=== PATIENT | male | born 1960 | race Caucasian/White ===

== ENCOUNTER 2018-06-17 08:26 | Day surgery (SDC) | payer BC ==
[2018-06-12 11:28] LABS: HEMATOCRIT 44.9 % (37.9-51.0); HEMOGLOBIN 15.5 g/dL (13.5-17.0); MEAN CORPUSCULAR HEMOGLOBIN 30.7 pg (27.0-33.4); MEAN CORPUSCULAR HGB CONC 34.6 g/dL (32.0-36.0); MEAN CORPUSCULAR VOLUME 89 fl (80-97); PLATELET COUNT 221 10^3/uL (150-450); RED BLOOD COUNT 5.06 10^6/uL (4.35-5.55); RED CELL DISTRIBUTION WIDTH 13.3 % (11.5-14.0); WHITE BLOOD COUNT 6.2 10^3/uL (4.0-10.5)
--- NOTE | 2018-06-15 17:40 | EKG REPORT ---
SEVERITY:- ABNORMAL ECG - SINUS RHYTHM INCOMPLETE RIGHT BUNDLE BRANCH BLOCK NONSPECIFIC T ABNORMALITIES, LATERAL LEADS, LVH. BORDERLINE PROLONGED QT INTERVAL : Confirmed by: Sergio Allen MD 15-Jun-2018 17:39:35
[~2018-06-17 08:26] MED LIST: ACETAMINOPHEN 325 MG TABLET PO PRN; CIPROFLOXACIN 400 MG/D5W RTU 400 MG/200 ML RTUPB IV ONE; CIPROFLOXACIN 400 MG/D5W RTU 400 MG/200 ML RTUPB IV PRN; LACTATED RINGERS 1000 ML IV PRN
[2018-06-17] MEDS ORDERED: HYDROMORPHONE HCL INJ/PF 2 MG/ML AMPULE ONE (10:15)
[2018-06-17] MEDS ORDERED: FENTANYL CITRATE INJ/PF 100 MCG/2 ML AMPUL ONE (10:15)
[2018-06-17] MEDS ORDERED: MIDAZOLAM 2 MG/2 ML INJ ONE (10:15)
[2018-06-17] MEDS ORDERED: PROPOFOL INJ 200 MG/20 ML VIAL IV ONE ×2 (10:16→11:12)
[2018-06-17] MEDS ORDERED: ACETAMINOPHEN 1,000 MG/100 ML RTUPB IV ONE (10:16)
[2018-06-17] MEDS ORDERED: BUPIVACAINE HCL 0.5 % INJ/PF 30 ML SDV ONE (10:42)
[2018-06-17] MEDS ORDERED: BUPIVACAINE INJ/PF LIPOSOME/PF 266 MG/20 ML SDV ONE (10:42)
[2018-06-17] MEDS ORDERED: BUPIVACAINE HCL/DEX-WATER/PF 15 MG/2 ML AMPULE ONE (11:11)
[2018-06-17] MEDS ORDERED: EPHEDRINE SULFATE INJ 50 MG/1 ML AMPULE ONE (11:12)
[2018-06-17] MEDS ORDERED: ONDANSETRON HCL INJ/PF 4 MG/2 ML SDV ONE (11:19)
[2018-06-17] MEDS ORDERED: DIPHENHYDRAMINE HCL 50 MG/ML VIAL IV PRN (11:51)
[2018-06-17] MEDS ORDERED: PROMETHAZINE HCL INJ 25 MG/1 ML VIAL IV PRN ×2 (11:51)
[2018-06-17] MEDS ORDERED: FENTANYL CITRATE INJ/PF 100 MCG/2 ML AMPUL IV PRN ×3 (11:51)
[2018-06-17] MEDS ORDERED: MORPHINE SULFATE 10 MG/ML INJ IV PRN (11:51)
[2018-06-17] MEDS ORDERED: MEPERIDINE HCL/PF INJ 25 MG/1 ML DISP.SYRIN IV PRN (11:51)
--- NOTE | 2018-06-17 13:06 | EKG REPORT ---
SEVERITY:- ABNORMAL ECG - SINUS RHYTHM LEFT ATRIAL ABNORMALITY NONSPECIFIC T ABNORMALITIES, DIFFUSE LEADS : Confirmed by: Sergio Allen MD 17-Jun-2018 13:04:42
--- NOTE | 2018-06-17 13:08 | Operative Report ---
Operative Report DATE OF SURGERY: 06/17/18 PREOPERATIVE DIAGNOSIS: Left inguinal hernia POSTOPERATIVE DIAGNOSIS: Same, indirect OPERATION: 1. Left inguinal expiration. 2. Left inguinal herniorrhaphy with large UHS mesh SURGEON: LUIS A LUTZ BANK EXAMINER: SILVESTRE ANDREA ANESTHESIA: Spinal TISSUE REMOVED OR ALTERED: Hernia sac COMPLICATIONS: None ESTIMATED BLOOD LOSS: Scant INTRAOPERATIVE FINDINGS: See below PROCEDURE: Patient was taken to the preop holding area with a left inguinal area was marked to the main operating room where appropriate level of spinal anesthesia was asked. The patient was placed in supine position arms extended, bed opened for maximum exposure to the inguinal area areas. The inguinal area which been previously clipped of hair was prepped and draped in sterile fashion as well as the testicles and scrotum. Surgical plan surgical timeout were conducted. The skin was Britta times with quarter percent Marcaine. A standard left inguinal herniorrhaphy incision was made with a knife, #10 blade. Subcutaneous tissue and Radha's fascia divided as encountered. Deeper tissues were anesthetized with quarter percent Marcaine, and the external oblique aponeurosis was opened, exposing the inguinal canal. Contents of the inguinal canal were carefully dissected free, sparing the ilioinguinal nerve. The patient had a moderate sized readily identifiable hernia sac which was dissected free of the cord structures. This was an indirect hernia taken to its point of origination, lateral to the inferior epigastric vessels. It was dissected cleanly and freely from all surrounding structures. Was opened, and confirmed communicate with the peritoneal cavity. I inspected the floor of the inguinal canal medially and it appeared to be but grossly intact. There were no contents within the sac proper other than peritoneal fluid. Sac was then rotated on its base, tied off with a 2-0 Vicryl suture, and amputated and sent to pathology as a hernia sac I felt that a prosthetic dual layer mesh was appropriate reconstruct the floor the inguinal canal. I believe that a non- large, UHS mesh would be an appropriate prosthetic so this was selected and brought onto the field. Now opened up the retroperitoneal space by bluntly dissecting the Tori cavity off of the anterior and lower pelvic sears on the patient's left side. We now deployed the mesh, splaying out the inner component into the retroperitoneal space. We now trimmed the external component to the appropriate configuration to reconstruct the floor the inguinal canal internally. Using approximately 8- 0 PDS sutures, the external component to the inguinal ligament inferiorly, the lacunar ligament medially, and the conjoined tendon superiorly. Ilioinguinal nerve was visualized throughout the dissection, and preserved. We did cut an upside down U in the mass at the 6 o'clock position to re-create the internal inguinal ring. Once the mesh was secured, the new ring was of appropriate diameter, and not too tight. We are satisfied with the reconstruction. There was no bleeding. We closed the external oblique aponeurosis along the direction of its fibers and then closed Radha's fascia with 2-0 Vicryl, skin closed with 3-0 Vicryl Dermabond glue, and injected 20 cc of full-strength Exparel into the subcutaneous tissues. Patient tolerated the procedure well, in the recovery room in stable condition. The physician clerical assistant, Ms. Lagos, provided assistance during this case by: Assisting, retracting tissue, instillation of local anesthesia and closure of skin incisions.
[2018-06-17] MEDS ORDERED: OXYCODONE-ACETAMINOPHEN 5-325 MG TABLET PO PRN (13:15)
--- NOTE | 2018-06-17 13:15 | Discharge Summary ---
Discharge Summary (SDC) - Discharge Final Diagnosis: Left inguinal hernia Date of Surgery: 06/17/18 Discharge Date: 06/17/18 Condition: Stable Treatment or Instructions: [facility] [address], [place] [address] Discharge Instructions: Open Abdominal Procedures (Hernia, Bowel Surgery) 1.General Information: a. DO NOT DRIVE a car or operative machinery for 1-2 weeks or as long as taking Narcotic pain medication. b. DO NOT consume alcohol, tranquilizers, sleeping medication, or any non- prescribed medication for 24 hours unless approved by your doctor or as long as taking pain medication. c. DO NOT make important decisions or sign any important papers for the first 24 hours after surgery. d. When discharged home the same day as surgery have a responsible person with you the first night. 2.Activity Restriction: 6 weeks, a. Avoid heavy lifting (> 10-15 lbs), straining abdominal muscles and sports, mowing lawn, vacuum guide rail cleaner and bending over a lot. b. Walking is important to avoid blood clots in the legs and deep breathing can prevent pneumonia. c. If it fine to go for walks, up and down steps, and ride in a car. 3.Treatment: a. You may shower in 24 hours. Do not scrub area. Let warm water/soap wash over area, pat dry. Cover if needed. Do not peel off skin glue, allow it to fall off on its own. c. Do not use oils, powders, or lotion on your incision. 4.Medications: a. You may take prescription tablets for pain if needed, one every 4 hours (_ Toradol_). c. You may resume all normal medications unless a change is specified by your doctors. 5.Diet: b. When discharged after hospital stay you may resume a normal diet. 6.Notify Physician If: a. Pain is not relieved by pain medication b. Persistent nausea and vomiting c. Chills, fever (above 101) d. Persistent bleeding or swelling at the operative site e. Unable to urinate for 6-8 hours f. Increased redness, drainage, or foul smelling discharge from incision 7. Follow Up Care: a. Please call our office to schedule an appointment with your doctor for 2 weeks. In the event of any postoperative problems or questions you may call our office during business hours or the On-Call surgeon through the chemical process operator at [facility]. [facility] [phone] [facility] [phone] (Ask for the surgeon sales applications engineer) b. I understand the instructions for my postoperative care as described above and a copy has been given to me. _ Witness Patient/Significant Other Date Prescriptions: Ketorolac Tromethamine [Toradol 10 mg Tablet] 10 mg PO Q6HP PRN #20 tablet PRN Reason: Referrals: REECE MEJÍA MD [Primary Care Provider] - Discharge Activity: No Lifting Over 10 Pounds, No Lifting/Push/Pulling, Walk Frequently Report the Following to Your Physician Immediately: Nausea, Vomiting, Increase in Pain, Fever over 101 Degrees, Unusual Bleeding, Redness, Swelling, Warmth, Drainage-Foul Smelling
[2018-06-17 16:45] VITALS: BP 182/102
== END 2018-06-17 16:40 | disposition home or self-care (01) ==
LOC: OROUT 08:26
PROVIDERS: ATTEND Surgery
DX: K40.90 Unilateral inguinal hernia, without obstruction or gangrene, not specified as recurrent (principal); E07.9 Disorder of thyroid, unspecified; E78.00 Pure hypercholesterolemia, unspecified; I10 Essential (primary) hypertension; F17.290 Nicotine dependence, other tobacco product, uncomplicated; Z88.0 Allergy status to penicillin; Z79.899 Other long term (current) drug therapy; Z79.82 Long term (current) use of aspirin
CPT/HCPCS: 93005 ×2; 36415 ×2; 84132; 85027; 88302 ×2; 93010 ×2; 49505; C1781; J2250; J3490 ×2; J3010; J2405; J2704; J0744; J0131; C9290; 830; J1170

== ENCOUNTER 2018-06-18 04:52 | Emergency (ER) | payer BC ==
--- NOTE | 2018-06-18 05:15 | ER Document Report ---
ED GI/ - General Chief Complaint: Urinary Retention Stated Complaint: URINATION PROBLEM Time Seen by Provider: 06/18/18 05:02 Mode of Arrival: Ambulatory Information source: Patient TRAVEL OUTSIDE OF THE [place] IN LAST 30 DAYS: No - HPI Patient complains to provider of: Urinary retention Onset: This afternoon Timing/Duration: Gradual, Persistent Quality of pain: Fullness, Pressure Severity at maximum: Severe Severity in ED: Severe Pain Level: 4 Location: Suprapubic Associated symptoms: None Exacerbated by: Denies Relieved by: Denies Similar symptoms previously: No Recently seen / treated by doctor: Yes Notes: 06/18/18 05:12 Patient is a 58-year-old male presenting to the emergency for complaints of urinary retention, states that he had a left inguinal hernia repair yesterday at this facility, was discharged home has been unable to urinate since, he reports extreme pressure and fullness in his suprapubic region, denies fever, no vomiting, no diarrhea, no history of similar symptoms, patient received an epidural during his surgical procedure - Related Data Allergies/Adverse Reactions: aspartame Allergy (Verified 06/12/18 09:32) Difficulty breathing Penicillins Allergy (Verified 06/12/18 09:32) Difficulty breathing Past Medical History - General Information source: Patient - Social History Smoking Status: Unknown if Ever Smoked Family History: Reviewed & Not Pertinent - Past Medical History Cardiac Medical History: Reports: Hx Hypertension Denies: Hx Coronary Artery Disease, Hx Heart Attack Pulmonary Medical History: Denies: Hx Asthma, Hx Bronchitis, Hx COPD - hx of pneumothorax, 3 chest tubes and sx to reinflate , Hx Pneumonia Neurological Medical History: Denies: Hx Cerebrovascular Accident, Hx Seizures Musculoskeletal Medical History: Reports Hx Arthritis - Possible in neck - Immunizations Hx Diphtheria, Pertussis, Tetanus Vaccination: Yes Review of Systems - Review of Systems Constitutional: No symptoms reported EENT: No symptoms reported Cardiovascular: No symptoms reported Respiratory: No symptoms reported Gastrointestinal: No symptoms reported Genitourinary: See HPI, Retention Male Genitourinary: No symptoms reported Musculoskeletal: No symptoms reported Skin: No symptoms reported Hematologic/Lymphatic: No symptoms reported Neurological/Psychological: No symptoms reported -: Yes All other systems reviewed and negative Physical Exam - Vital signs Vitals: Temp Pulse BP Pulse Ox 99.2 F 96 180/91 H 92 06/18/18 04:56 06/18/18 04:56 06/18/18 04:56 06/18/18 04:56 - Notes Notes: - General General appearance: Appears well, Alert In distress: None - HEENT Head: Normocephalic, Atraumatic Eyes: Normal Conjunctiva: Normal Extraocular movements intact: Yes Eyelashes: Normal Pupils: PERRL - Respiratory Respiratory status: No respiratory distress - Cardiovascular Rhythm: Regular - Abdominal Inspection: First incision to left inguinal space with ecchymosis, skin adhesive glue in place overlying the wound, there is mild tenderness overlying the incision, suprapubic tenderness and fullness - Back Back: Normal - Extremities General upper extremity: Normal inspection General lower extremity: Normal inspection - Neurological Neuro grossly intact: Yes Orientation: AAOx4 Roby Coma Scale Eye Opening: Spontaneous [place] Coma Scale Verbal: Oriented [place] Coma Scale Motor: Obeys Commands [place] Coma Scale Total: 15 - Psychological Associated symptoms: Normal affect, Normal mood - Skin Skin Temperature: Warm Skin Moisture: Dry Skin Color: Normal Course - Re-evaluation Re-evalutation: 06/18/18 05:14 Shaffer catheter was placed by the nurse, significant urine drainage, patient reports significant relief, will be discharged home with Shaffer catheter in place with instructions for follow-up, advised to return if any additional concerns - Vital Signs Vital signs: Temp Pulse Resp BP Pulse Ox 99.2 F 96 180/91 H 92 06/18/18 04:56 06/18/18 04:56 06/18/18 04:56 06/18/18 04:56 Discharge - Discharge Clinical Impression: Postoperative urinary retention Condition: Stable Disposition: HOME, SELF-CARE Instructions: Urinary Retention ([facility]) Additional Instructions: Follow up with your primary care provider in one to 2 days. Return to the emergency room immediately if symptoms worsen or any additional concerns. Referrals: REECE MEJÍA MD [Primary Care Provider] - Follow up as needed
[2018-06-18 06:06] VITALS: BP 170/86
[2018-06-18 06:21] LABS: APPEARANCE,URINE CLEAR; BILIRUBIN,URINE NEGATIVE (NEGATIVE); COLOR,URINE YELLOW; GLUCOSE, URINE NEGATIVE (NEGATIVE); KETONES,URINE NEGATIVE (NEGATIVE); LEUKOCYTE ESTERASE,URINE NEGATIVE (NEGATIVE); NITRITE,URINE NEGATIVE (NEGATIVE); PROTEIN,URINE NEGATIVE (NEGATIVE); URINE SPECIFIC GRAVITY 1.012; UROBILINOGEN,URINE NEGATIVE mg/dL (<2.0)
== END 2018-06-18 06:08 | disposition home or self-care (01) ==
LOC: ER 04:52
DX: R33.9 Retention of urine, unspecified (principal); I10 Essential (primary) hypertension; Z98.890 Other specified postprocedural states; Z88.0 Allergy status to penicillin
CPT/HCPCS: 51702; 81001; 99284